=== PATIENT | female | born 1990 | race Caucasian/White ===

== ENCOUNTER 2023-06-15 00:27 | Day surgery (SDC) | payer OTHER, MEDICAID ==
[~2023-06-15] VITALS: Ht 157.5 cm; Wt 84.0 kg
[2023-06-15 00:40] VITALS: O2SAT 98
[2023-06-15] MEDS ORDERED: ONDANSETRON HCL 4MG/2ML INJ IV ONE (00:45)
[2023-06-15] MEDS ORDERED: SODIUM CHLORIDE 0.9% 1,000 ML IV ONE (00:45)
[2023-06-15] MEDS ORDERED: ACETAMINOPHEN 325MG TABLET PO ONE (00:45)
[2023-06-15 01:09] LABS: BASOPHILS % 0.7 % (0.0-2.0); EOSINOPHILS % 5.6 % (0.0-5.0); HEMATOCRIT. 34.7 % (36.0-48.0); HEMOGLOBIN. 11.5 g/dL (12.0-16.0); LYMPHOCYTES % 28.4 % (20.0-50.0); MEAN CORPUSCULAR HEMOGLOBIN 26.6 pg (28.0-32.0); MEAN CORPUSCULAR HGB CONC 33.2 g/dL (31.0-37.0); MEAN CORPUSCULAR VOLUME 80.2 fL (81.0-99.0); MONOCYTES % 7.8 % (2.0-8.0); NEUTROPHILS % 57.5 % (40.0-76.0); PLATELET 410 x1000/uL (130-400); RED BLOOD CELL COUNT 4.32 mill/uL (4.2-5.4); RED CELL DISTRIBUTION WIDTH 14.6 % (11.6-14.6); WHITE BLOOD COUNT 9.1 x1000/uL (4.5-11.0)
[2023-06-15 01:19] LABS: CHLORIDE 108 mEq/L (98-107); INDEX HEMOLYSI 1 (1-3); INDEX ICTERIC 1 (1-4); INDEX LIPEMIC 1 (1-3); POTASSIUM 3.7 mEq/L (3.5-5.1); SODIUM 138 mEq/L (136-145)
[2023-06-15 01:26] LABS: ALANINE AMINOTRANSFERASE 30 IU/L (13-61); ALBUMIN 3.7 g/dL (3.4-5.0); ASPARTATE AMINOTRANSFERASE 15 IU/L (15-37); BILIRUBIN TOTAL 0.2 mg/dL (0.1-1.0); CALCIUM 9.3 mg/dL (8.5-10.1); CARBON DIOXIDE 26 mEq/L (21-32); CREATININE 0.5 mg/dL (0.6-1.3); GLUCOSE 101 mg/dL (70-105); PROTEIN TOTAL 8.3 g/dL (6.0-8.3); UREA NITROGEN BLOOD 8 mg/dL (7-21)
[2023-06-15] MEDS ORDERED: KETOROLAC 15MG/ML VIAL IV ONE (03:30)
[2023-06-15] MEDS ORDERED: ACETAMINOPHEN 325MG TABLET PO NR (04:15)
[2023-06-15] MEDS ORDERED: KETOROLAC 15MG/ML VIAL IV NR (04:15)
[2023-06-15] MEDS ORDERED: CEFTRIAXONE 1GM PREMIX 50 ML IV ONE (04:15)
[2023-06-15] MEDS ORDERED: ONDANSETRON HCL 4MG/2ML INJ IV NR (04:15)
[2023-06-15 05:56] LABS: CLARITY URINE CLOUDY (CLEAR); COLOR URINE YELLOW (YELLOW); GLUCOSE URINE NEGATIVE (NEGATIVE); KETONES URINE NEGATIVE (NEGATIVE); LEUKOCYTE ESTERASE URINE 1+ (NEGATIVE); NITRITE URINE NEGATIVE (NEGATIVE); OCCULT BLOOD URINE NEGATIVE (NEGATIVE); PH URINE 6.5 (4.5-8.0); PROTEIN URINE NEGATIVE (NEGATIVE); UROBILINOGEN URINE 0.2 E.U./dL (0.2-1.0)
[2023-06-15 05:59] LABS: RBC URINE 0-2 /hpf (0-2); SQUAMOUS EPITHELIAL CELL URINE 1+ /lpf (RARE/1+); YEAST URINE NONE SEEN
[2023-06-15 06:16] LABS: BACTERIA URINE 1+
[2023-06-15] MEDS ORDERED: CEFTRIAXONE 1GM PREMIX 50 ML IV NR (07:00)
[2023-06-15 07:30] VITALS: BP 105/54; PULSE 75; RESP 24; TEMP 98.9
[2023-06-15] MEDS ORDERED: LIDOCAINE HCL 1% 20ML VIAL (Pyxis) INJ ONE (08:35)
[2023-06-15] MEDS ORDERED: SKIN ADHESIVE 0.7 GM EA TOP ONE (08:35)
[2023-06-15] MEDS ORDERED: BUPIVACAINE HCL/PF 0.5% (5MG/ML) 10ML ONE (08:36)
[2023-06-15] MEDS ORDERED: FENTANYL CITRATE/PF 50MCG/ML 2ML VIAL ONE (09:15)
[2023-06-15] MEDS ORDERED: PROPOFOL 200MG/20ML VIAL IV ONE (09:15)
[2023-06-15] MEDS ORDERED: SUCCINYLCHOLINE CHLORIDE 200MG/10ML IV ONE (09:15)
[2023-06-15] MEDS ORDERED: ROCURONIUM BROMIDE 10MG/ML VIAL 5ML IV ONE ×2 (09:15→09:46)
[2023-06-15] MEDS ORDERED: MIDAZOLAM HCL 2 MG/2 ML VIAL ONE (09:16)
[2023-06-15] MEDS ORDERED: GLYCOPYRROLATE 0.2 MG/ML 2ML VIAL ONE ×4 (09:48→10:26)
[2023-06-15] MEDS ORDERED: NEOSTIGMINE METHYLSULFATE 1MG/ML 10 ML VIAL ONE (10:26)
[2023-06-15] MEDS ORDERED: HYDROCODONE/ACETAMINOPHEN 5/325MG TABLET PO NR (12:30)
== END 2023-06-15 13:20 | disposition home or self-care (01) ==
LOC: ER 00:27 → UNDOADMIN 04:33 → MICUSO 04:33 → OR 09:20
PROVIDERS: ATTEND Surgery
DX: K37 Unspecified appendicitis (principal); Z79.899 Other long term (current) drug therapy; Z98.890 Other specified postprocedural states; Z20.822 Contact with and (suspected) exposure to COVID-19
CPT/HCPCS: 44970; 80053; 81003; 83690; 85025; 36415; 88304; 74176; 76830; 76856; 99285; 87426; J3010; J3490 ×3; J0696; J1885; J2250; J2405; J2704; J0330; J7030 ×2; J2710